=== PATIENT | female | born 1950 | race Caucasian/White ===

== ENCOUNTER → 2020-04-29 09:23 | Outpatient (CLI) | payer MEDICARE, SELFPAY ==
--- NOTE | 2020-04-29 09:27 | DI.RAD.S_ITS ---
PROCEDURE: XR LUMBAR SPINE MIN 4V INDICATIONS: Low Back Pain TECHNIQUE: 5 views of the lumbar spine acquired. COMPARISON: None. FINDINGS: Bones: 5 nonrib-bearing vertebrae are present. Trace dextroscoliosis centered at the L4 level. Multilevel disc degeneration, most notably in moderate at the L4-L5 and L5-S1 levels where there also is moderate facet joint arthropathy. No vertebral body compression fractures. No suspicious bony lesions. No pars interarticularis defects. Soft tissues: Overlying bowel gas pattern is normal. No suspicious soft tissue calcifications. Cholecystectomy clips. IMPRESSION: Multilevel spondylosis, most notably at the L4-L5 and L5-S1 levels. Dictated by: Reji PARRY Interpreted: Tutu Quintana MD on 04/29/2020 at 10:02 Approved by: Tutu Quintana M.D. on 04/29/2020 at 10:31
== END ==
PROVIDERS: PCP Nurse Practitioner; Referring Provider Physical Medicine & Rehabilitation; Visit Provider Physical Medicine & Rehabilitation
DX: M54.5 Low back pain (principal); M51.16 Intervertebral disc disorders with radiculopathy, lumbar region; M51.17 Intervertebral disc disorders with radiculopathy, lumbosacral region; M47.26 Other spondylosis with radiculopathy, lumbar region; M47.27 Other spondylosis with radiculopathy, lumbosacral region
CPT/HCPCS: 72110; 99215

== ENCOUNTER → 2020-05-10 11:31 | Outpatient (CLI) | payer MEDICARE, SELFPAY ==
--- NOTE | 2020-05-10 11:33 | DI.MRI.S_ITS ---
PROCEDURE: MR LUMBAR SPINE WO CON INDICATIONS: chronic LBP TECHNIQUE: Noncontrast sagittal T1 spin echo and T2 fast echo, sagittal STIR, axial T1 and T2 fast spin echo through the lumbar spine. In cases with scoliosis, additional coronal T2 fast spin echo may be performed. COMPARISON: [facility], CR, XR LUMBAR SPINE MIN 4V, 04/29/2020, 9:18. FINDINGS: Image quality: Excellent. Alignment and Curvature: There is trace L2-L3 anterolisthesis. There is trace L3-L4 and L4-L5 retrolisthesis. Bone Marrow: Mild reactive endplate changes noted adjacent to the L2-L3, L3-L4 and L4-L5 discs. Chronic appearing T11 compression deformity with Schmorl's node in the superior endplate of the vertebral body. No acute vertebral body compression fractures. Spinal Cord: Conus medullaris terminates at the L1 level. Visualized cord demonstrates normal signal and size. Paraspinous Soft Tissues: No paravertebral masses. L1-L2: Loss of disc signal. Mild, diffuse disc bulge. Mild bilateral facet hypertrophy. Mild narrowing of the central canal. Mild bilateral neural foraminal narrowing. No neural compression. L2-L3: Loss of disc signal and slight loss of disc height. Mild to moderate diffuse disc bulge. [id number] bilateral facet hypertrophy. Severe narrowing of the central canal with slight compression of the traversing nerve roots of the cauda equina. Mild bilateral neural foraminal narrowing. L3-L4: Loss of disc signal. Mild to moderate diffuse disc bulge. [id number] bilateral facet hypertrophy. Moderate to severe narrowing of the central canal with crowding of the traversing nerve roots of the cauda equina. Moderate bilateral neural foraminal narrowing. L4-L5: Loss of disc signal and height. Moderate, diffuse disc bulge. Moderate bilateral facet hypertrophy. Severe narrowing of the central canal with compression of the nerve roots of the cauda equina. Moderate to severe bilateral neural foraminal narrowing with slight compression of the exiting bilateral L4 nerve roots. L5-S1: Loss of disc signal. Mild, diffuse disc bulge. Moderate bilateral facet hypertrophy. No central stenosis. Mild bilateral neural foraminal narrowing. No neural compression IMPRESSION: 1. Multilevel degenerate disc disease. 2. Multilevel facet arthropathy. 3. Severe L2-L3 and L4-L5 central canal narrowing with slight compression of the nerve roots of the cauda equina moderate to severe L3-L4 central canal narrowing. 4. Moderate to severe bilateral L4-L5 neural foraminal narrowing with slight compression of the exiting bilateral L4 nerve roots. Dictated by: Bernice Lopez MD, PhD on 05/10/2020 at 13:03 Approved by: Bernice Lopez MD, PhD on 05/10/2020 at 13:08
== END ==
PROVIDERS: PCP Nurse Practitioner; Referring Provider Physical Medicine & Rehabilitation; Visit Provider Physical Medicine & Rehabilitation
DX: M47.816 Spondylosis without myelopathy or radiculopathy, lumbar region (principal); M47.817 Spondylosis without myelopathy or radiculopathy, lumbosacral region; M54.5 Low back pain; M51.36 Other intervertebral disc degeneration, lumbar region; M51.37 Other intervertebral disc degeneration, lumbosacral region; M48.061 Spinal stenosis, lumbar region without neurogenic claudication; G89.29 Other chronic pain
CPT/HCPCS: 72148

== ENCOUNTER → 2021-05-14 07:45 | Outpatient (CLI) | payer MEDICARE, SELFPAY ==
--- NOTE | 2021-05-14 | DI.ECHO.S_ITS ---
[facility] +---------+ : : [address] [place] : : : : [phone] : : : : Phone: [phone]+ Echocardiogram Report + + :Name: EMELY CRUZ Study Date: 05/14/2021 Height: 64 in : :[facility] ReadingLocation: Weight: 240 lb : : Gender: Female BSA: 2.1 m2 : :: 1950 Age: 70 yrs BP: 151/100 mmHg: :Reason For Study: SHORTNESS OF BREATH : :Ordering Physician: JU, : :SOL Performed By: Carole Harding : :Referring: SOL DODD : + + Interpretation Summary The ejection fraction is estimated to be 45-50% which is borderline reduced. Left ventricular global longitudinal strain average is -19%. Septal motion is consistent with conduction abnormality. Diastolic parameters suggest probable normal left ventricular diastolic function and normal filling pressures. The right ventricle is normal in size and function. The right ventricular systolic pressure is estimated to be at least 28 mmHg based on an estimated right atrial pressure of 3 mm Hg. The left atrial size is normal. Right atrial size is normal. There is mild mitral regurgitation. There is no other significant valvular heart disease. The aortic root is normal size. Procedure: A two-dimensional transthoracic echocardiogram with color flow and Doppler was performed. The study quality was technically adequate. There is no prior echocardiogram noted for this patient. The patient was in sinus rhythm with heart rates between 64-75 bpm during the exam. Left Ventricle: The left ventricle is normal in size and wall thickness. The ejection fraction is estimated to be 45-50%. Left ventricular global longitudinal strain average is -19%. Septal motion is consistent with conduction abnormality. Diastolic parameters suggest probable normal left ventricular diastolic function and normal filling pressures. Right Ventricle: The right ventricle is normal in size and function. Atria: The left atrial size is normal. Right atrial size is normal. There is no Doppler evidence for an interatrial shunt. Mitral Valve: The mitral valve leaflets appear mildly thickened, but open well. There is mild mitral regurgitation. Aortic Valve: The aortic valve is grossly normal. The aortic valve opens well. There is no aortic valve stenosis. No aortic regurgitation is present. Tricuspid Valve: The tricuspid valve is normal in structure and function. There is mild tricuspid regurgitation. The right ventricular systolic pressure is estimated to be at least 28 mmHg based on an estimated right atrial pressure of 3 mm Hg. Pulmonic Valve: The pulmonic valve leaflets are thin and pliable; valve motion is normal. There is no pulmonic valvular regurgitation. There is no other significant valvular heart disease. Great Vessels: The aortic root is normal size. The dimensions of the ascending aorta are normal. The IVC is of normal diameter and collapses greater than 50% with a sniff. This suggests a low right atrial pressure of 3 mm Hg. Pericardium/ Pleura There is no pericardial effusion. There is no pleural effusion. MMode/2D Measurements & Calculations LVIDd: 5.0 cm LVOT diam: 2.1 cm LVIDs: 3.9 cm Ao root diam: 3.6 cm FS: 21.7 % asc Aorta Diam: 3.3 cm IVSd: 0.80 cm Ao Arch Diam (Prox Trans): 2.6 cm LVPWd: 0.60 cm LV rollins. diameter/BSA (cm/m^2): 2.4 LV sys. diameter/BSA (cm/m^2): 1.8 LA A2 area: 21.1 cm2 RA long axis: 4.6 cm LA A4 area: 14.5 cm2 RA area: 13.1 cm2 LA length (vol): 4.7 cm RA vol: 31.5 ml LA vol: 55.9 ml RA : 14.9 ml/m2 LA vol index: 26.4 ml/m2 IVC diam: 1.2 cm RVD1 (basal): 3.1 cm TAPSE: 1.8 cm Doppler Measurements & Calculations Ao V2 max: 119.8 cm/sec LVOT Max Suoth: 75.8 cm/sec Ao V2 mean: 83.0 cm/sec LV V1 max P.3 mmHg Ao max P.7 mmHg LV V1 VTI: 18.8 cm Ao mean P.1 mmHg LUKE(I,D): 2.2 cm2 Ao V2 VTI: 29.1 cm LUKE(V,D): 2.2 cm2 sev ratio: 0.65 LUKE indexed to BSA (cm^2/m^2): 1.1 MV E max south: 85.8 cm/sec TR max south: 251.9 cm/sec MV A max south: 81.1 cm/sec TR max P.4 mmHg MV E/A: 1.1 PA V2 max: 63.1 cm/sec Med Peak E' South: 6.6 cm/sec PA V2 mean: 47.1 cm/sec E/E' med: 13.0 PA mean P.97 mmHg Lat Peak E' South: 9.0 cm/sec PA pr(Accel): 22.5 mmHg E/E' lat: 9.6 E/e' average: 11.3 MV dec time: 0.25 sec SV(LVOT): 65.2 ml Reading Physician:12:57 PM
== END ==
PROVIDERS: PCP Physician Assistant; Referring Provider Internal Medicine Pulmonary Disease; Visit Provider Internal Medicine Pulmonary Disease
DX: I08.1 Rheumatic disorders of both mitral and tricuspid valves (principal); R06.02 Shortness of breath; I27.20 Pulmonary hypertension, unspecified
CPT/HCPCS: 93306

== ENCOUNTER → 2022-05-08 15:47 | Outpatient (CLI) | payer MEDICARE, SELFPAY ==
--- NOTE | 2022-05-08 16:19 | DI.ECHO.S_ITS ---
Interpretation Summary The ejection fraction is estimated to be 50-55%. Diastolic parameters suggest probable normal left ventricular diastolic function and normal filling pressures. The right ventricle is normal in size and function. There is trace aortic regurgitation. Pulmonary artery pressures cannot be estimated because of the lack of a measurable TR jet velocity. Compared to the prior study dated 05/14/2021, the ejection fraction has slightly improved. Procedure: A two-dimensional transthoracic echocardiogram with color flow and Doppler was performed. The study quality was technically adequate. Comparison is made with the echocardiogram of 05/14/2021. Left Ventricle: The left ventricle is normal in size and wall thickness. The ejection fraction is estimated to be 50-55%. There are no focal wall motion abnormalities. Diastolic parameters suggest probable normal left ventricular diastolic function and normal filling pressures. Right Ventricle: The right ventricle is normal in size and function. Atria: Both atria are normal in size. The interatrial septum grossly appears intact with no obvious evidence for an atrial septal defect. Mitral Valve: The mitral valve is normal in structure and function. There is trace mitral regurgitation. Aortic Valve: The aortic valve is normal in structure and function. There is no aortic valve stenosis. There is trace aortic regurgitation. Tricuspid Valve: The tricuspid valve is normal in structure and function. There is a trace or physiologic amount of tricuspid regurgitation. Pulmonary artery pressures cannot be estimated because of the lack of a measurable TR jet velocity. Pulmonic Valve: The pulmonic valve is not well visualized. There is no pulmonic valvular regurgitation. Great Vessels: The aortic root is normal size. The ascending aorta could not be visualized. The IVC is of normal diameter and collapses greater than 50% with a sniff. This suggests a low right atrial pressure of 3 mm Hg. Pericardium/ Pleura There is no pericardial effusion. There is no pleural effusion. MMode/2D Measurements & Calculations LVIDd: 5.1 cm LVOT diam: 2.0 cm LVIDs: 3.6 cm Ao root diam: 3.6 cm FS: 30.1 % IVSd: 0.79 cm LVPWd: 0.85 cm LV rollins. diameter/BSA (cm/m^2): 2.4 LV sys. diameter/BSA (cm/m^2): 1.7 LA A2 area: 16.0 cm2 RA long axis: 5.0 cm LA A4 area: 14.1 cm2 RA area: 13.8 cm2 LA length (vol): 5.0 cm RA vol: 32.0 ml LA vol: 38.2 ml RA : 15.0 ml/m2 LA vol index: 17.9 ml/m2 TAPSE: 2.2 cm Doppler Measurements & Calculations Ao V2 max: 124.3 cm/sec LVOT Max South: 101.7 cm/sec Ao V2 mean: 88.1 cm/sec LV V1 max P.1 mmHg Ao max P.2 mmHg LV V1 VTI: 23.0 cm Ao mean P.4 mmHg LUKE(I,D): 2.8 cm2 Ao V2 VTI: 26.3 cm LKUE(V,D): 2.6 cm2 sev ratio: 0.87 LUKE indexed to BSA (cm^2/m^2): 1.3 MV E max south: 78.2 cm/sec TR max south: 241.2 cm/sec MV A max south: 75.6 cm/sec TR max P.3 mmHg MV E/A: 1.0 Med Peak E' South: 8.4 cm/sec E/E' med: 9.3 Lat Peak E' South: 10.2 cm/sec E/E' lat: 7.7 E/e' average: 8.5 MV dec time: 0.28 sec SV(OT): 73.4 ml Reading Physician:05:09 PM
== END ==
PROVIDERS: Referring Provider Internal Medicine Cardiovascular Disease; Visit Provider Internal Medicine Cardiovascular Disease
DX: I50.32 Chronic diastolic (congestive) heart failure (principal)
CPT/HCPCS: 93306

== ENCOUNTER → 2023-07-20 08:54 | Outpatient (CLI) | payer MEDICARE, SELFPAY ==
--- NOTE | 2023-07-20 | DI.MRI.S_ITS ---
PROCEDURE: MR LUMBAR SPINE WO CON INDICATIONS: LUMBAR FORAMINAL STENOSIS TECHNIQUE: Noncontrast sagittal T1 spin echo and T2 fast echo, sagittal STIR, and T2 fast spin echo through the lumbar spine. In cases with scoliosis, additional coronal T2 fast spin echo may be performed. COMPARISON: [facility], MR, MR LUMBAR SPINE WO CON, 05/10/2020, 12:06. FINDINGS: Image quality: Excellent. Alignment and Curvature: Straightening of normal lumbar lordosis. Trace anterolisthesis of L2 on L3 is stable. Bone Marrow: Mild reactive endplate changes, most pronounced at L4-5. Marrow is of normal overall signal. No acute vertebral body compression fractures. Spinal Cord: Conus medullaris terminates at the L1 level. Visualized cord demonstrates normal signal and size. Paraspinous Soft Tissues: No paravertebral masses. T12-L1: Normal appearance. L1-L2: Disc desiccation and small posterior disc bulge. Facet arthropathy. Stable central canal stenosis. No significant neural foraminal stenosis. L2-L3: Disc desiccation and small posterior disc bulge. Facet arthropathy and thickening of ligamentum flavum. Epidural lipomatosis. Stable severe central canal stenosis. Mild right neural foraminal stenosis. No left neural foraminal stenosis. L3-L4: Disc desiccation and posterior disc bulge. Facet arthropathy and thickening of ligamentum flavum. Epidural lipomatosis. Stable moderate to severe central canal stenosis. Moderate bilateral neural foraminal stenosis is stable. L4-L5: Disc desiccation height loss with posterior disc bulge. Facet arthropathy and thickening of ligamentum flavum. Mild epidural lipomatosis. Stable severe central canal stenosis. Stable moderate to severe bilateral neural foraminal stenosis. L5-S1: Mild diffuse disc bulge. Disc desiccation. Facet arthropathy. No central canal stenosis. Mild bilateral neural foraminal stenosis is stable. IMPRESSION: 1. Similar appearance of multilevel degenerative changes of the lumbar spine. 2. There is severe central canal stenosis at L2-L3 and L4-L5 and moderate to severe at L3-L4. 3. Moderate to severe bilateral neural foraminal stenosis L4-5. See above for additional levels of neural foraminal stenosis. Dictated by: Jarred Canales M.D. on 07/20/2023 at 10:45 Approved by: Jarred Canales M.D. on 07/20/2023 at 10:52
== END ==
PROVIDERS: Referring Provider Physical Medicine & Rehabilitation Pain Medicine; Visit Provider Physical Medicine & Rehabilitation Pain Medicine
DX: M48.061 Spinal stenosis, lumbar region without neurogenic claudication (principal); M48.07 Spinal stenosis, lumbosacral region; M47.816 Spondylosis without myelopathy or radiculopathy, lumbar region; M47.817 Spondylosis without myelopathy or radiculopathy, lumbosacral region
CPT/HCPCS: 72148

== ENCOUNTER → 2023-08-20 12:24 | Outpatient (CLI) | payer MEDICARE, SELFPAY ==
--- NOTE | 2023-08-20 | DI.MRI.S_ITS ---
PROCEDURE: MR THORACIC SPINE WO CON INDICATIONS: Back pain TECHNIQUE: Noncontrast sagittal T1 spine echo and T2 fast spin echo, sagittal STIR, and T2 fast spin echo through the thoracic spine. COMPARISON: [facility], CR, XR THORACIC SPINE 2 VIEWS, 06/23/2023, 14:33. [facility], CR, XR LUMBAR SPINE WITH OBLIQUES PLUS FLEXION EXTENSION, 07/07/2023, 13:11. [facility], MR, MR LUMBAR SPINE WO CON, 07/20/2023, 9:02. FINDINGS: Image quality: Excellent. Alignment and Curvature: There is normal bony alignment. Bone Marrow: Marrow is of normal overall signal. No acute vertebral body compression fractures. There is a remote Schmorl's node seen at the superior endplate of the T11 level. Mild anterior wedge deformity can be seen involving T11, with 10-20% loss of height anteriorly. No acute features are seen. Spinal Cord: Visualized spinal cord is normal in size and signal. Paraspinous Soft Tissues: No paravertebral masses. Miscellaneous: At the T7-T8 level, there is a mild central/right disc protrusion, as on series 7, image 27. Mild central canal narrowing is seen, with mild to moderate mass effect upon the ventral spinal cord. Several perineural cysts can be seen involving the exit foramina, as seen on series 6, image 5 and on series 6 image 10. The largest is seen on the right at the T9-T10 level, as on series 7, image 32. Several levels of mild to moderate neural foraminal narrowing can be seen within the mid to lower thoracic spine. IMPRESSION: Focal T7-T8 degenerative change. Remote T11 anterior wedge deformity, with a remote Schmorl's node. Numerous perineural cysts can be seen involving the exit foramina. Dictated by: Perez Krishna M.D. on 08/20/2023 at 12:09 Approved by: Perez Krishna M.D. on 08/20/2023 at 12:12
== END ==
PROVIDERS: PCP Internal Medicine; Referring Provider Physical Medicine & Rehabilitation Pain Medicine; Visit Provider Physical Medicine & Rehabilitation Pain Medicine
DX: M47.814 Spondylosis without myelopathy or radiculopathy, thoracic region (principal); G96.191 Perineural cyst; S23.9XXS Sprain of unspecified parts of thorax, sequela; M43.8X4 Other specified deforming dorsopathies, thoracic region; M51.44 Schmorl's nodes, thoracic region
CPT/HCPCS: 72146